=== PATIENT | female | born 1960 | race Caucasian/White ===

== ENCOUNTER → 2025-01-14 | Outpatient (CLI) | payer BC ==
--- NOTE | 2025-01-14 15:28 | MM ---
Reason for Exam: Screening (asymptomatic). Patient History: Menarche at age 14. First Full-Term at age 24. Postmenopausal. Risk Values: Chika 5 year model risk: 1.4%. NCI Lifetime model risk: 6.0%. Prior Study Comparison: No prior studies available for comparison. Tissue Density: There are scattered areas of fibroglandular density. Findings: Analyzed By CAD. There is 8 mm circumscribed round mass in the right breast anterior to middle depth outer aspect approximately 4 cm distance from nipple. There are benign-appearing bilateral axillary lymph nodes. Overall Assessment: Incomplete: need additional imaging evaluation, BI-RAD 0 Management: Diagnostic Breast Ultrasound of the right breast. Targeted diagnostic ultrasound right breast. Patient should continue monthly self-breast exams. A clinical breast exam by your physician is recommended on an annual basis. This exam should not preclude additional follow-up of suspicious palpable abnormalities. Note on Chika scores and lifetime risk: 1. A Chika score greater than 3% is considered moderate risk. If this is the case, consider specialist referral to assess eligibility for a risk reducing agent. 2. If overall lifetime risk for the development of breast cancer is 20% or higher, the patient may qualify for future screening with alternating mammogram and breast MRI. [facility], , 01/14/2025 3:25 PM. Electronically signed and approved by: Harvey Montano M.D.
--- NOTE | 2025-01-14 15:28 | BD ---
EXAMINATION TYPE: Axial Bone Density DATE OF EXAM: 01/14/2025 CLINICAL HISTORY: 64 years old Female. ICD-10 CODE: N95.1 MENOPAUSAL AND FEMALE CLIMA , Additional History: Height: 62 Weight: 191 FRAX RISK QUESTIONS: History of Fracture in Adulthood: yes Secondary Osteoporosis: RISK FACTORS HISTORY OF: MEDICATIONS: EXAM MEASUREMENTS: Bone mineral densitometry was performed using the [employer]. Bone mineral density as measured about the Lumbar spine is: ----- L1-L4(G/cm2): 1.101 T Score Values are as follows: ----- L1: -0.7 ----- L2: -0.9 ----- L3: -0.8 ----- L4: -0.5 ----- L1-L4: -0.7 Z Score Values are as follows: ----- L1: 0.0 ----- L2: -0.2 ----- L3: -0.1 ----- L4: 0.2 ----- L1-L4: 0.1 First dexa at [facility] Bone mineral density about the R hip (g/cm2): 1.169 Bone mineral density about the L hip (g/cm2): 1.192 T Score values are as follows: -----R Neck: 0.6 -----L Neck: 0.1 -----R Total: 1.3 -----L Total: 1.5 Z Score values are as follows: -----R Neck: 1.5 -----L Neck: 1.0 -----R Total: 1.8 -----L Total: 2.0 First dexa at [facility] FRAX%s: The graph provided illustrates a 10.1% chance for a major osteoporotic fx and a 0.2% chance f or the hips probability for fx in 10 years time. IMPRESSION: Normal (Values between +1 and -1 indicate normal bone mass). Consider repeating this study in 5 year s or sooner if there is some new clinical indication. NOTE: T-SCORE=SD OF THE YOUNG ADULT MEAN. [facility], , 01/14/2025 3:26 PM
== END | disposition home or self-care (01) ==
LOC: RADMAMWWP 14:31
PROVIDERS: ATTEND Family Medicine
DX: Z12.31 Encounter for screening mammogram for malignant neoplasm of breast (principal); R92.323 Mammographic fibroglandular density, bilateral breasts; Z78.0 Asymptomatic menopausal state
CPT/HCPCS: 77063; 77067; 77080

== ENCOUNTER → 2025-01-21 | Outpatient (CLI) | payer BC ==
--- NOTE | 2025-01-21 10:52 | USB ---
Reason for Exam: Additional evaluation requested from abnormal screening. Patient History: Menarche at age 14. First Full-Term at age 24. Postmenopausal. Risk Values: Chika 5 year model risk: 1.4%. NCI Lifetime model risk: 6.0%. Technique: Method: Targeted. Prior Study Comparison: 01/14/2025 Bilateral MG 3D screening mammo w/cad, [place]. Findings: The lateral section of the breast of the right breast, the axilla of the right breast and the retroareolar of the right breast were scanned. Complex cyst at the right 8:00 position 6 cm from the nipple measuring 7 x 7 mm. Six-month follow-up ultrasound.. Overall Assessment: Probably benign, BI-RAD 3 Management: Diagnostic Breast Ultrasound of the right breast in 6 months. A clinical breast exam by your physician is recommended on an annual basis and results should be correlated with mammographic findings. This exam should not preclude additional follow-up of suspicious palpable abnormalities. Results were given to the patient verbally at the time of exam. [facility], , 01/21/2025 10:49 AM. Electronically signed and approved by: Jaime Carrasco M.D. Radiolog[facility]
== END | disposition home or self-care (01) ==
LOC: RADUSWWP 10:29
PROVIDERS: ATTEND Family Medicine
DX: R92.8 Other abnormal and inconclusive findings on diagnostic imaging of breast (principal); Z78.0 Asymptomatic menopausal state